=== PATIENT | female | born 1990 | race Caucasian/White ===

== ENCOUNTER 2020-01-06 22:37 | Emergency (ER) | payer OTHER ==
[~2020-01-06] VITALS: Ht 158 cm; Wt 82.0 kg
[~2020-01-06 22:37] MED LIST: METR500T PO; NAPR-243 PO
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
[2020-01-07 00:23] VITALS: BP 143/88
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
== END 2020-01-07 00:45 | disposition home or self-care (01) ==
LOC: EDUNIT# 22:37 → ER 22:44
DX: S09.90XA Unspecified injury of head, initial encounter (principal); S01.01XA Laceration without foreign body of scalp, initial encounter; R40.2142 Coma scale, eyes open, spontaneous, at arrival to emergency department; R40.2252 Coma scale, best verbal response, oriented, at arrival to emergency department; R40.2362 Coma scale, best motor response, obeys commands, at arrival to emergency department; Z88.8 Allergy status to other drugs, medicaments and biological substances; V49.40XA Driver injured in collision with unspecified motor vehicles in traffic accident, initial encounter
CPT/HCPCS: 70450; 72125